=== PATIENT | female | born 1980 | race Caucasian/White ===

== ENCOUNTER 2020-06-10 11:17 | Emergency (ER) | payer OTHER, SELFPAY ==
--- NOTE | ~2020-06-10 | XR_ITS ---
XR elbow LT 2V DATE: 06/10/2020 11:52 INDICATION: Fell on concrete. Pain, deformity, limited range of motion TECHNIQUE: AP and lateral views COMPARISON: None FINDINGS: There is posterior dislocation at the radiocapitellar joint. There is comminuted fracture of the proximal diametaphysis of the ulna, with 50% or greater lateral d isplacement and apex posterior angulation IMPRESSION: Fracture dislocation at the elbow Reviewed, dictated and finalized at location [facility]
[2020-06-10 11:26] VITALS: BP 154/101; PULSE 61; RESP 18; TEMP 37; O2SAT 100
--- NOTE | 2020-06-10 12:24 | ED.UPPEXIN ---
HPI - Extremity Injury (Upper) General Chief Complaint: Fall Stated Complaint: FALL/L ELBOW PAIN Time Seen by Provider: 06/10/20 12:11 Source: patient Mode of arrival: ambulatory Limitations: no limitations History of Present Illness HPI narrative: Patient 39-year-old female complaining of left elbow pain after she tripped fall over a pallet prior to arrival. Patient states her pain is a 9 out of 10. Denies any head, neck, chest, abdomen, pelvis, hip or any other extremity pain/injury Related Data Allergies Allergy/AdvReac Type Severity Reaction Status Date / Time No Known Allergies Allergy Mild Verified 06/10/20 11:34 Review of Systems Review of Systems: All systems reviewed & are unremarkable except as noted in HPI and below Constitutional: Constitutional: Denies body ache(s), Denies chills, Denies excessive sweating, Denies fatigue, Denies fever(s), Denies headache(s), Denies lethargy, Denies malaise, Denies weakness and Denies weight loss Eyes: Eyes: Denies blurry vision, Denies change in vision and Denies loss of vision ENT: Denies dizziness, Denies ear discharge, Denies headache(s), Denies lip swelling, Denies epistaxis, Denies nasal congestion, Denies neck pain, Denies throat swelling and Denies tongue swelling Cardiovascular: Cardiovascular: Denies chest pain, Denies chest pain at rest, Denies chest pain with activity, Denies diaphoresis, Denies rapid heart rate, Denies edema, Denies irregular heart rhythm, Denies lightheadedness, Denies palpitations, Denies dyspnea and Denies dyspnea on exertion Respiratory: Respiratory: Denies chest congestion, Denies cough, Denies hemoptysis, Denies dyspnea and Denies dyspnea on exertion Gastrointestinal: Gastrointestinal: Denies abdominal pain, Denies melena, Denies hematochezia, Denies diarrhea, Denies nausea, Denies vomiting and Denies hematemesis Musculoskeletal: Musculoskeletal: Denies abnormal gait, Denies deformity, Denies neck pain and Denies numbness Comments: Left elbow swelling, pain on palpation of the left elbow, decreased range of motion of the left elbow due to pain, neurovascular is intact bilateral upper extremity Neurologic: Denies Abnormal speech present, Denies abnormal gait, Denies confusion, Denies dizziness, Denies headache(s), Denies focal weakness, Denies loss of vision, Denies numbness, Denies Other visual disturbances, Denies Sensory deficit (Neuro) and Denies weakness Psychiatric: Psychiatric: Denies confusion, Denies depression, Denies auditory hallucinations, Denies homicidal ideation and Denies suicidal ideation Endocrine: Endocrine: Denies cold intolerance, Denies excessive sweating, Denies fatigue, Denies heat intolerance and Denies palpitations Hematologic/Lymphatic: Hematologic/Lymphatic: Denies easy bleeding and Denies easy bruising Allergic/Immunologic: Allergic/Immunologic: Denies lip swelling, Denies throat swelling and Denies tongue swelling Course Vital Signs Vital signs: Vital Signs Temperature 37.0 C 06/10/20 11:26 Pulse Rate 61 06/10/20 11:26 Respiratory Rate 18 06/10/20 11:26 Blood Pressure 154/101 H 06/10/20 11:26 Pulse Oximetry 100 06/10/20 11:26 Temperature 37.0 C 06/10/20 11:26 Pulse Rate 66 06/10/20 16:09 Respiratory Rate 18 06/10/20 16:09 Blood Pressure 158/107 H 06/10/20 16:09 Pulse Oximetry 100 06/10/20 16:09 MDM - Extremity Injury (Upper) MDM Narrative Medical decision making narrative: Discussed with orthopedic surgeon on-call, Dr. Núñez states that the fracture dislocation is complicated and will need to be transferred to either [facility] or [place]. Discussed with ortho warehouse distribution associate Dr Macias and accepted the transfer. Discussed with Dr Tobias and accepted the transfer. Patient refused ambulance transfer and states that she her will drive her to [facility]. By doing this patient will need to signed refusal of care which she did. Discussed the risk of going by private car as opposed to an ambu
[2020-06-10] MEDS: TETANUS,DIPHTHERIA,AC PERTUSSIS ADULT (0.5 ML) BOOSTRIX IM (13:15)
[2020-06-10] MEDS: HYDROmorphone HCL INJ (*CRX) 1 MG/ML SYR 0.5 MG IV PUSH (13:16)
[2020-06-10 13:48] VITALS: BP 169/117; PULSE 67; RESP 15; O2SAT 99
[2020-06-10 16:09] VITALS: BP 158/107; PULSE 66; RESP 18; O2SAT 100
[2020-06-10] MEDS: HYDROcodone/acetaminophen (*CRX) 5-325 MG TABLET 2 TAB PO (16:24)
--- NOTE | 2020-06-10 16:58 | PC.NURSE ---
Pt was given ER and Orthopedic for [facility]. Via Dr. Michaels
== END 2020-06-10 16:42 | disposition left against medical advice (07) ==
PROVIDERS: Emergency Provider Emergency Medicine; PCP Family Medicine
DX: S52.092A Other fracture of upper end of left ulna, initial encounter for closed fracture (principal); I10 Essential (primary) hypertension; Z23 Encounter for immunization; W18.09XA Striking against other object with subsequent fall, initial encounter
CPT/HCPCS: 29105; 73070; 90471; 90715; 96374; 99284; A4565; A9270; J1170